=== PATIENT | male | born 1990 | race African-American/Black ===

== ENCOUNTER 2017-05-02 16:25 | Emergency (ER) | payer OTHER ==
[~2017-05-02] VITALS: Ht 172.7 cm; Wt 68.0 kg
[~2017-05-02 16:25] MED LIST: ACET500C5 PO; ALBU18HF INHALATION; ALBU2.5V3 NEB; ALBU2.5V36 NEB; ALBU8.5H5 IH; ALBU8.5H5 INH; ALPR2TAB PO; AZIT250T94 PO; BENZ100C70 PO; CODE118S PO; HYDR-3498 PO; IBUP200C PO; NAPR-260 PO; PRED20TA PO; PROM6.25 PO
[2017-05-02 16:30] VITALS: Ht 172.7 cm; Wt 68.0 kg
[2017-05-02] MEDS ORDERED: ALPR1TAB7 PO (17:10)
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
== END 2017-05-02 17:34 | disposition home or self-care (01) ==
LOC: FTE 16:25
DX: F41.9 Anxiety disorder, unspecified (principal); J45.909 Unspecified asthma, uncomplicated
CPT/HCPCS: 99281

== ENCOUNTER 2017-07-14 13:11 | Emergency (ER) | payer OTHER ==
[~2017-07-14] VITALS: Wt 68.5 kg
[~2017-07-14 13:11] MED LIST changes: +ALPR1TAB7 PO
[2017-07-14] MEDS ORDERED: ALPR2TAB PO (13:44)
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
== END 2017-07-14 14:08 | disposition home or self-care (01) ==
LOC: FTE 13:11
DX: F41.9 Anxiety disorder, unspecified (principal); J45.909 Unspecified asthma, uncomplicated
CPT/HCPCS: 99283

== ENCOUNTER 2017-08-21 23:06 | Emergency (ER) | payer SELFPAY ==
[~2017-08-21] VITALS: Ht 170.2 cm; Wt 70.5 kg
[2017-08-21 23:09] VITALS: Ht 170.2 cm; Wt 70.5 kg
== END 2017-08-22 02:19 | disposition left against medical advice (07) ==
LOC: E/R 23:06
DX: Z53.21 Procedure and treatment not carried out due to patient leaving prior to being seen by health care provider (principal)

== ENCOUNTER 2017-08-29 15:48 | Emergency (ER) | payer OTHER ==
[~2017-08-29] VITALS: Ht 160 cm; Wt 78.0 kg
[2017-08-29 15:51] VITALS: Ht 160 cm; Wt 78.0 kg
[2017-08-29] MEDS ORDERED: ALPR2TAB PO (17:24)
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
== END 2017-08-29 18:50 | disposition home or self-care (01) ==
LOC: FTE 15:48
DX: Z76.0 Encounter for issue of repeat prescription (principal); J45.909 Unspecified asthma, uncomplicated
CPT/HCPCS: 99281

== ENCOUNTER 2017-09-22 13:53 | Emergency (ER) | payer OTHER ==
[~2017-09-22] VITALS: Wt 74.1 kg
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
[2017-09-22] MEDS ORDERED: LORAZEPAM 1 MG TAB PO ONE (15:30)
== END 2017-09-22 15:09 | disposition left against medical advice (07) ==
LOC: FTE 13:53
DX: Z76.0 Encounter for issue of repeat prescription (principal); J45.909 Unspecified asthma, uncomplicated
CPT/HCPCS: 99281